=== PATIENT | male | born 1950 | race Caucasian/White ===

== ENCOUNTER 2021-03-31 17:01 | Emergency (ER) | payer OTHER, MEDICARE ==
[2021-03-31] MEDS ORDERED: Albuterol/Ipratropium 3.0-0.5 MG/3 ML Neb Soln NEB ONE (17:54)
[2021-03-31] MEDS ORDERED: predniSONE 20 MG Tab PO ONE (18:19)
== END 2021-03-31 18:46 | disposition home or self-care (01) ==
LOC: FB.ED 17:01
DX: J44.1 Chronic obstructive pulmonary disease with (acute) exacerbation (principal); Z20.822 Contact with and (suspected) exposure to COVID-19
CPT/HCPCS: 87635; 94640; 99285; J7512; 99284; J7620-GY; U0002